=== PATIENT | female | born 1975 | race Caucasian/White ===

== ENCOUNTER → 2017-02-13 | Outpatient (CLI) | payer BC ==
--- NOTE | 2017-02-14 10:39 | MM ---
Reason for exam: screening (asymptomatic). Last mammogram was performed 2 years and 1 month ago. History: Family history of breast cancer in mother. Physical Findings: A clinical breast exam by your physician is recommended on an annual basis and results should be correlated with mammographic findings. MG Screening Mammo w CAD Bilateral CC and MLO view(s) were taken. Prior study comparison: January 21, 2015, mammogram, performed at [facility]. January 05, 2015, mammogram, performed at [facility]. February 28, 2012, mammogram, performed at [facility]. The breast tissue is heterogeneously dense. This may lower the sensitivity of mammography. There is no discrete abnormality. No significant changes when compared with prior studies. ASSESSMENT: Negative, BI-RAD 1 RECOMMENDATION: Routine screening mammogram of both breasts in 1 year.
== END ==
LOC: RADMAMWWP 08:42
PROVIDERS: ATTEND Family Medicine
DX: Z12.31 Encounter for screening mammogram for malignant neoplasm of breast (principal)

== ENCOUNTER 2021-04-29 09:11 | Emergency (ER) | payer BC, OTHER ==
[2021-04-29] MEDS ORDERED: IBUPROFEN 600 MG TAB PO STA (09:40)
--- NOTE | 2021-04-29 09:56 | ED ---
General Adult HPI - General Chief complaint: Extremity Injury, Upper Stated complaint: Covid+/wants antibodies Time Seen by Provider: 04/29/21 09:47 Source: patient, RN notes reviewed Mode of arrival: ambulatory Limitations: no limitations - History of Present Illness Initial comments: Patient is a 45-year-old female with history of mild asthma, presenting to the emergency department requesting medical antibodies. Patient stated she started having some mild symptoms about 8 days ago, test positive for Covid 3 days ago. Her also is coated positive. Sore throat, intermittent fevers, mild cough. She denies any vomiting or diarrhea. Has a chest pains or shortness of breath. She has no further complaints. Upon arrival to the ER, her te mperatures 101.1, pulse is 107, rest of vitals normal. She did take Tylenol just prior to arrival. - Related Data Previous Rx's Medication Instructions Recorded Albuterol Inhaler [Ventolin Hfa 1 puff INHALATION RT-QID PRN #8 gm 04/29/21 Inhaler] Allergies Allergy/AdvReac Type Severity Reaction Status Date / Time latex Allergy Rash/Hives Verified 04/29/21 09:18 Penicillins Allergy Rash/Hives Verified 04/29/21 09:18 codeine AdvReac Unknown Verified 04/29/21 09:18 Review of Systems ROS Statement: Those systems with pertinent positive or pertinent negative responses have been documented in the HPI. ROS Other: All systems not noted in ROS Statement are negative. Past Medical History Past Medical History: Thyroid Disorder History of Any Multi-Drug Resistant Organisms: None Reported Past Surgical History: Hysterectomy, Uterine Ablation Additional Past Surgical History / Comment(s): spinal tap, hemrrhoidectomy Past Psychological History: No Psychological Hx Reported Smoking Status: Never smoker Past Alcohol Use History: Occasional Past Drug Use History: None Reported General Exam - General Exam Comments Initial Comments: GENERAL: Patient is well-developed and well-nourished. Patient is nontoxic and in no acute distress. HEAD: Atraumatic, normocephalic. EYES: Pupils equal round and reactive to light, extraocular movements intact, sclera anicteric, conjunctiva are normal. Eyelids were unremarkable. ENT: Oropharynx clear without exudates. Moist mucous membranes. NECK: Normal range of motion, supple without lymphadenopathy or JVD. LUNGS: Unlabored respirations. Breath sounds clear to auscultation bilaterally and equal. No wheezes rales or rhonchi. HEART: Regular rate and rhythm without murmurs, rubs or gallops. ABDOMEN: Soft, nontender, normoactive bowel sounds. No guarding, no rebound. No masses appreciated. MUSCULOSKELETAL: Normal extremities with adequate strength and normal range of motion, no pitting or edema. No clubbing or cyanosis. NEUROLOGICAL: Patient is alert and oriented x 3. SKIN: Warm, Dry, normal turgor, no rashes or lesions noted. Limitations: no limitations Course Vital Signs 04/29/21 09:18 Temperature 101.1 F H Pulse Rate 107 H Respiratory 18 Rate Blood Pressure 115/72 O2 Sat by Pulse 96 Oximetry Medical Decision Making - Medical Decision Making Patient is a 45-year-old female with history of mild asthma presenting with Covid for the last 3 days, symptoms began about 9 days ago. She is requesting monoclonal antibodies. She did arrive febrile 101.1, she took Tylenol just prior to arrival, did give her some Motrin. Patient does call 5 monoclonal antibodies, she received these without adverse side effects. Patient will be given a prescription for an inhaler, recommended alternating between Tylenol and Motrin for fever control. Continue to increase her fluids. She stable for discharge. Return parameters were discussed with her and she verbalized unders tanding. Case discussed with Dr. Alicea. Disposition Clinical Impression: COVID-19 Disposition: HOME SELF-CARE Condition: Stable Is patient prescribed a controlled substance at d/c from ED?: No Time of Disposition: 09:56
[2021-04-29] MEDS ORDERED: CASIRIVIMAB (REGN10933) (EUA) 600 MG, IMDEVIMAB (REGN10987) (EUA) 600 MG in SODIUM CHLO... IVPB ONE (10:00)
[2021-04-29] MEDS ORDERED: SODIUM CHLORIDE 0.9% 50 ML IVPB ONE (10:00)
[2021-04-29 10:33] VITALS: RESP 16; TEMP 98.5
[2021-04-29] MEDS ORDERED: SODIUM CHLORIDE 0.9% 500 ML 500 ML in EMPTY BAG 1 BAG IV PRN (10:35)
[2021-04-29 11:19] VITALS: BP 106/60; PULSE 88
== END 2021-04-29 12:00 | disposition home or self-care (01) ==
LOC: PROCWHC3 09:11 → EC 09:11 → EDSTATUS 10:09 → PROCWHC3 12:00
DX: U07.1 COVID-19 (principal); E07.9 Disorder of thyroid, unspecified; Z91.040 Latex allergy status; Z88.0 Allergy status to penicillin; Z88.5 Allergy status to narcotic agent; Z90.710 Acquired absence of both cervix and uterus
CPT/HCPCS: 99283; 96360; Q0243; M0243

== ENCOUNTER → 2021-06-29 | Outpatient (CLI) | payer OTHER ==
--- NOTE | 2021-06-29 09:34 | MR ---
EXAMINATION TYPE: MR cervical spine wo con DATE OF EXAM: 06/29/2021 COMPARISON: HISTORY: Cervical disc disorder, RT arm pain, decreased range of motion TECHNIQUE: Multiplanar, multisequence images of the cervical spine were acquired without contrast. C2-C3: No evidence for degenerative disc disease. No disc bulge/herniation or protrusion. No Canal stenosis. Foramina are patent bilaterally. C3-C4: Facet arthropathy changes present, uncovertebral joint hypertrophy contributes cause minimal l eft-sided foraminal encroachment, no significant spinal stenosis. C4-C5: Uncovertebral joint hypertrophy, facet arthropathy contributes to cause some mild left-sided f oraminal encroachment, there is posterior broad-based disc bulge present effacing the anterior thecal sac. No significant spinal stenosis. C5-C6: Circumferential posterior extension of endplate disc complex causes mild anterior mass effect on the thecal sac. There is uncovertebral joint hypertrophy, mild left-sided foraminal encroachment. C6-C7: Right lateral disc herniation extends into the neural foramen region, causes anterolateral mas s effect on the thecal sac toward the right, some disc material is present posterior to the C7 verteb ral body disorder midline, sagittal image #11, no significant spinal stenosis. Correlate for right T7 radiculopathy. C7-T1: No evidence for degenerative disc disease. No disc bulge/herniation or protrusion. No Canal stenosis. Foramina are patent bilaterally. Cervical segments are intact. There is normal alignment. Cervical spinal cord is of normal signal. Craniovertebral junction relationships are within normal limits. Cervical vertebral bodies show pre served height, there is some mild spondylosis, endplate discogenic marrow signal change. Increased si gnal on T1 and T2 images at the posterior aspect of the C7 vertebral body likely represents hemangiom a. Loss of disc height and signal is present at C4-5, C5-6 consistent with disc desiccation and degen erative disc disease, increased signal at the posterior aspect of the disc on T2-weighted images at C 6-7 may represent a small annular tear. IMPRESSION: Disc herniation on the right at C6-7 as described. Degenerative disc disease.
== END | disposition home or self-care (01) ==
LOC: RADMRIMAIN 08:30
PROVIDERS: ATTEND Family Medicine
DX: M50.123 Cervical disc disorder at C6-C7 level with radiculopathy (principal)
CPT/HCPCS: 72141

== ENCOUNTER → 2023-08-21 | Outpatient (CLI) | payer OTHER ==
--- NOTE | 2023-08-21 16:13 | CT ---
EXAMINATION TYPE: CT abdomen pelvis w con CT DLP: 409.3 mGycm, Automated exposure control for dose reduction was used. DATE OF EXAM: 08/21/2023 1:28 PM COMPARISON: CT abdomen pelvis most recent from CLINICAL INDICATION:Female, 47 years old with history of R10.2 PELVIC AND PERINEAL PAIN; chronic kidn ey infections, left flank pain TECHNIQUE: Axial CT abdomen pelvis w con;Sagittal and coronal reformats were created on a separate w orkstation. Contrast used:100 mL of Isovue 300 with IV Contrast, (none if empty) Oral contrast used: with Oral Contrast (none if empty) FINDINGS: LOWER CHEST: Unremarkable ABDOMEN LIVER: Unremarkable GALLBLADDER AND BILE DUCTS: Unremarkable. PANCREAS: Unremarkable. SPLEEN: Unremarkable. ADRENAL GLANDS: Unremarkable. KIDNEYS AND URETERS: No evidence of hydronephrosis or renal calculus. The ureters are unremarkable. No hypodense attenuation to suggest pyelonephritis. PELVIS BLADDER: Unremarkable REPRODUCTIVE: Unremarkable. ABDOMEN & PELVIS STOMACH AND BOWEL: Stomach and duodenum are unremarkable. Only 2 or 3 diverticula noted in the dist al descending colon. No evidence of bowel obstruction. PERITONEUM/RETROPERITONEUM: No evidence of pneumoperitoneum or free fluid. VASCULATURE: No evidence of aortic aneurysm. MUSCULOSKELETAL: No acute osseous abnormalities LYMPH NODES: No gross evidence for lymphadenopathy. SOFT TISSUE/ABDOMINAL WALL: Unremarkable IMPRESSION: 1. No acute process is appreciated.
== END | disposition home or self-care (01) ==
LOC: RADCTMAIN 11:15
PROVIDERS: ATTEND Family Medicine
DX: R10.2 Pelvic and perineal pain (principal); G89.29 Other chronic pain
CPT/HCPCS: 74177; Q9967

== ENCOUNTER → 2023-09-04 | Outpatient (CLI) | payer OTHER ==
--- NOTE | 2023-09-06 00:27 | MM ---
Reason for Exam: Screening (asymptomatic). Last mammogram was performed 1 year(s) and 9 month(s) ago. Patient History: Menarche at age 11. First Full-Term at age 19. Hysterectomy at age 35. Perimenopausal. Patient has history of breast feeding. Paternal cousin had breast cancer, age 35. Maternal grandmother had ovarian cancer under age 50. Mother had breast cancer. Risk Values: Cady 5 year model risk: 1.7%. NCI Lifetime model risk: 16.9%. Prior Study Comparison: 02/28/2012 Bilateral Screening Mammogram, [facility]. 01/05/2015 Bilateral Screening Mammogram, [facility]. 01/11/2015 Right Screening Mammogram, [facility]. 02/13/2017 Bilateral Screening Mammogram, [facility]. 07/17/2018 Bilateral Screening Mammogram, [facility]. 08/05/2019 Bilateral Screening Mammogram, [facility]. 09/09/2020 Bilateral Screening Mammogram, [facility]. 12/12/2021 Bilateral Screening Mammogram, [facility]. Tissue Density: The breasts are extremely dense, which lowers the sensitivity of mammography. Findings: Analyzed By CAD. The pattern is symmetrical. Pattern appears stable. No significant interval change No suspicious groups of microcalcifications, spiculated or lobular masses, architectural distortion or other secondary signs of malignancy are mammographically apparent. Overall Assessment: Benign, BI-RAD 2 Management: Screening Mammogram of both breasts in 1 year. A negative mammogram report should not preclude additional follow up of suspicious palpable abnormalities. Patient should continue monthly self breast exam. A clinical breast exam by your physician is recommended on an annual basis and results should be correlated with mammographic findings. Electronically signed and approved by: Octavio Carvalho D.O. Radiologis
== END | disposition home or self-care (01) ==
LOC: RADMAMWWP 09:18
PROVIDERS: ATTEND Family Medicine
DX: Z12.31 Encounter for screening mammogram for malignant neoplasm of breast (principal); Z80.3 Family history of malignant neoplasm of breast
CPT/HCPCS: 77063; 77067

== ENCOUNTER → 2023-09-05 | Outpatient (CLI) | payer OTHER ==
[2023-09-05 11:16] LABS: HCT 41.9 % (37.2-46.3); MCHC 33.4 g/dL (32.0-37.0); MCV 95.9 FL (80.0-97.0); Mean Platelet Volume 10.9 FL (9.5-12.2); NRBC Per 100 WBC 0 X 10*3/uL (0.00-0.01); Platelet Count 188 X 10*3/uL (140-440); RBC 4.37 X 10*6/uL (4.10-5.20); RDW 13.2 % (11.5-14.5); WBC 4.06 X 10*3/uL (4.50-10.00)
[2023-09-05 11:39] LABS: ALT 11 U/L (8-44); AST 14 U/L (13-35); Albumin 4.5 g/dL (3.8-4.9); Albumin/Globulin Ratio 2.05 Ratio (1.60-3.17); Alkaline Phosphatase 62 U/L (41-126); BUN/Creat Ratio 11.75 Ratio (12.00-20.00); Blood Urea Nitrogen 9.4 mg/dL (9.0-27.0); Calcium 9.1 mg/dL (8.7-10.3); Carbon Dioxide 23.1 mmol/L (21.6-31.8); Chloride 114 mmol/L (96-109); Chol/HDL Ratio 2.51 Ratio; Globulin 2.2 g/dL (1.6-3.3); Glucose 100 mg/dL (70-110); LDL Cholesterol,Calculated 71.3 mg/dL (0.0-131.0); Sodium 144 mmol/L (135-145); T4, Free (Free Thyroxine) 1.45 ng/dL (0.80-1.80); Total Bilirubin 0.5 mg/dL (0.3-1.2); Total Protein 6.7 g/dL (6.2-8.2); VLDL Calculation 14.08 mg/dL (5.00-40.00)
== END | disposition home or self-care (01) ==
LOC: LABWHC1 08:40
PROVIDERS: ATTEND Family Medicine
DX: Z00.01 Encounter for general adult medical examination with abnormal findings (principal); E03.9 Hypothyroidism, unspecified; E66.3 Overweight; R53.83 Other fatigue
CPT/HCPCS: 36415; 80053; 80061; 84439; 84443; 84481; 85027